=== PATIENT | male | born 1980 | race Caucasian/White ===

== ENCOUNTER 2017-10-08 23:20 | Emergency (ER) | payer OTHER ==
[~2017-10-08] VITALS: Ht 170.2 cm; Wt 89.5 kg
[2017-10-08 23:28] VITALS: BP 139/84
[2017-10-08] MEDS ORDERED: [UNRECOGNIZED DRUG - OTHER] (23:34)
[2017-10-08] MEDS ORDERED: [UNRECOGNIZED DRUG - OTHER] (23:34)
[2017-10-08] MEDS ORDERED: [UNRECOGNIZED DRUG - OTHER] (23:34)
--- NOTE | 2017-10-08 23:36 | NUR ---
TO ER BED 2
--- NOTE | 2017-10-08 23:53 | NUR ---
37/M CAME IN W C/O 05/26 SHARP LOWER ABD PAIN, CONSTANT, X YESTERDAY. ABD ROUND, DISTENDED, +TENDERNESS DIFFSUED, BS ACTIVE X 4. PT REPORTS BLOOD IN STOOL TODAY, REPORTS N/V X2, DIARRHEA X3 TODAY. PT REPORTS TONSILLECTOMY LAST THURSDAY IN [place] AND HAS BEEN TAKING TYLENOL FOR PAIN. DENIES OTHER PMH/RX
[2017-10-08] MEDS ORDERED: MORPHINE SULFATE 4 MG/ML SYR IVP ONE (23:55)
[2017-10-08] MEDS ORDERED: ONDANSETRON 4 MG/2 ML VIAL IVP ONE (23:55)
[2017-10-08] MEDS ORDERED: NACL 0.9% 1,000 ML IV ONE (23:55)
[2017-10-09 00:11] LABS: HEMATOCRIT 48.2 % (36-52); HEMOGLOBIN 15.4 g/dL (12.0-18.0); MEAN CORPUSCULAR HEMOGLOBIN 27 pg (27-31); MEAN CORPUSCULAR HGB CONC 32 g/dL (33-37); MEAN CORPUSCULAR VOLUME 84 fL (80-94); PLATELET COUNT (AUTO) 148 K/uL (140-450); RED BLOOD CELL COUNT(AUTO) 5.73 MIL/uL (4.20-6.10); RED CELL DISTRIBUTION WIDTH 13.4 % (11.6-13.7); WHITE BLOOD COUNT (AUTO) 13.6 K/uL (4.8-10.8)
[2017-10-09 00:22] LABS: ANION GAP 11.7 (8-16); CARBON DIOXIDE 31.1 mmol/L (21-32); CREATININE 1.1 mg/dL (0.7-1.3); POTASSIUM 3.8 mmol/L (3.5-5.1)
[2017-10-09 00:23] LABS: EOSINOPHILS % (MANUAL) 6 % (0-4); LYMPHOCYTES % (MANUAL) 14 % (20-46); MONOCYTES % (MANUAL) 8 % (5-12)
[2017-10-09 00:28] LABS: ALBUMIN 3.3 g/dL (3.4-5.0); TOTAL BILIRUBIN 0.3 mg/dL (0.0-1.0)
[2017-10-09 01:35] LABS: APPEARANCE,URINE CLEAR (CLEAR); BILIRUBIN,URINE NEGATIVE (NEGATIVE); BLOOD, URINE NEGATIVE (NEGATIVE); COLOR,URINE YELLOW (YELLOW); LEUKOCYTE ESTERASE ,URINE NEGATIVE (NEGATIVE); NITRITE, URINE NEGATIVE (NEGATIVE); PH,URINE 5.5 (5.0-9.0); UGLUCOSE NEGATIVE (NEGATIVE)
[2017-10-09] MEDS ORDERED: MORPHINE SULFATE 4 MG/ML SYR IVP ONE (01:40)
[2017-10-09 02:00] VITALS: BP 137/56
--- NOTE | 2017-10-09 02:00 | NUR ---
Patient discharged with v/s stable. Written and verbal after care instructions given and explained. Patient alert, oriented and verbalized understanding of instructions. Ambulatory with steady gait. All questions addressed prior to discharge. ID band removed. Patient advised to follow up with PMD. Rx of MIRALAX POWDER BID given. Patient educated on indication of medication including possible reaction and side effects. Opportunity to ask questions provided and answered.
== END 2017-10-09 02:00 | disposition home or self-care (01) ==
LOC: MED 23:20
DX: K59.00 Constipation, unspecified (principal); K92.2 Gastrointestinal hemorrhage, unspecified; Z90.89 Acquired absence of other organs
CPT/HCPCS: 36415; 74176; 80053; 81003; 83690; 85025; 96361; 96374; 96375; 96376; 99285; J2270; J2405; J7030

== ENCOUNTER 2023-02-01 23:35 | Emergency (ER) | payer OTHER ==
[~2023-02-01] VITALS: Ht 167.6 cm; Wt 81.6 kg
[~2023-02-01 23:35] MED LIST: [UNRECOGNIZED DRUG - OTHER]; [UNRECOGNIZED DRUG - OTHER]; [UNRECOGNIZED DRUG - OTHER]
[2023-02-01 23:41] VITALS: BP 130/81
--- NOTE | 2023-02-01 23:55 | NUR ---
PT TO BED
--- NOTE | 2023-02-01 23:56 | NUR ---
Patient being evaluated by physician at bedside.
[2023-02-02] MEDS ORDERED: NACL 0.9% 1,000 ML IV ONE (00:10)
[2023-02-02] MEDS ORDERED: methylPREDNISolone SS 125 MG in WATER STERILE 2 ML IV ONE (00:10)
[2023-02-02] MEDS ORDERED: diphenhydrAMINE 50 MG/ML VIAL IVP ONE (00:10)
[2023-02-02] MEDS ORDERED: methylPREDNISolone SS 125 MG/2 ML VIAL ONE (00:19)
[2023-02-02] MEDS ORDERED: WATER STERILE 10 ML MC ONE (00:19)
--- NOTE | 2023-02-02 00:30 | NUR ---
Pt medicated as ordered; tolerated well.
[2023-02-02] MEDS ORDERED: METH4TAB1 PO (01:11)
[2023-02-02] MEDS ORDERED: FEXO1TAB16 PO (01:11)
[2023-02-02 01:15] VITALS: BP 134/79
--- NOTE | 2023-02-02 01:15 | NUR ---
Patient discharged with v/s stable. Written and verbal after care instructions given and explained. Patient alert, oriented and verbalized understanding of instructions. All questions addressed prior to discharge. ID band removed. Patient advised to follow up with PMD. Rx of [] given. Patient educated on indication of medication including possible reaction and side effects. Opportunity to ask questions provided and answered.
--- NOTE | 2023-02-02 01:15 | NUR ---
Rx sent to preferred pharmacy*
== END 2023-02-02 01:15 | disposition home or self-care (01) ==
LOC: MED 23:35
DX: L50.9 Urticaria, unspecified (principal); Z79.899 Other long term (current) drug therapy
CPT/HCPCS: 96361; 96374; 96375; 99284; J1200; J2930; J7030